=== PATIENT | female | born 1945 | race Caucasian/White ===

== ENCOUNTER → 2024-03-26 13:16 | Outpatient (REF) | payer MEDICARE, SELFPAY | LOC: HWWDC 13:16 | PROVIDERS: ATTENDING PHYSICIAN Family Medicine | DX: Z12.31 Encounter for screening mammogram for malignant neoplasm of breast (principal) | CPT/HCPCS: 77063; 77067 ==

== ENCOUNTER → 2025-03-29 08:59 | Outpatient (REF) | payer MEDICARE, SELFPAY | LOC: HWRCS 08:59 | PROVIDERS: ATTENDING PHYSICIAN Internal Medicine Cardiovascular Disease; FAMILY PHYSICIAN Family Medicine | DX: I34.0 Nonrheumatic mitral (valve) insufficiency (principal) | CPT/HCPCS: 93306 ==